=== PATIENT | female | born 1940 | race Caucasian/White ===

== ENCOUNTER → 2017-03-22 | Outpatient (CLI) | payer OTHER ==
[~2017-03-22] MED LIST: ACTOS PO; ALPRAZOLAM PO; ASPIRIN PO; ATACAND PO; CATAPRES0.1 MG PO; CENTRUM SILVER PO; CLONIDINE PO; CLONIDINE TOP; CLOPIDOGREL75 MG PO; COREG PO; CRESTOR5 MG PO; FISH OIL 1,0001 CAP PO; GLUCOSOMINE PO; IRON TABLETS1 TAB PO; LASIX PO; LIPITOR PO; LISINOPRIL PO; LOSARTAN POTASS50 MG PO; LOVAZA1 G PO; NEXIUM PO; NIACIN500 M1 PO; NITROGYLCERIN SUBLINGUAL; NORVASC PO; PRAVASTATIN SOD10 MG PO; SENSIPAR30 M1 PO; SYNTHROID PO; TRICOR PO; VELPHORO500 MG PO; VITAMIN C500 M1 PO; VITAMIN D50000 UNIT PO; ZYLOPRIM100 MG PO
--- NOTE | ~2017-03-22 | CT98 ---
[facility] A Service of [facility] & [facility] RADIOLOGY TEXT RESULTS PATIENT: DAVID HOBBS LOCATION: [facility] : 44 UNIT #: [id number] AGE: [address]: Miller Guidry MD SEX: F ORDER DR: [id number] [facility] [address] [place], [place] [address] [id number] O MR#: [id number] Acc #: [id number] NAME: DAVID HOBBS. : 1940 SEX: F STUDY DATE/TIME: 03/22/2017 14:19 [facility]IT: [facility] ROOM: STUDY DESCRIPTION: CT Lumbar Spine Wo Cont Attending Physician: Miller Guidry Jr., M.D. Referring Physician: Miller Guidry Jr., M.D. Ordering Physician: Miller Guidry Jr., M.D. Primary Care Physician: Miller Guidry Jr., M.D. MEDICAL IMAGING REPORT This report is preliminary unless electronic signature is present EXAM CT of the lumbar spine without contrast dated 03/22/2017. COMPARISON Plain films lumbar spine dated 03/25/2013. 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 TECHNIQUE CT of the lumbar spine was obtained without contrast in the axial plane followed by sagittal and coronal reformats. This CT exam was performed with one or more of the following radiation dose reduction techniques: automatic exposure control, adjustment of mA and/or kV according to patient size, and iterative reconstruction. FINDINGS There is superior endplate compression deformity of L1 with no obvious acute changes. It is age-indeterminate and probably iiaufylu-zj-rdagypp. There is probably developing Schmorl node along the anterior aspect of the superior endplate. Multilevel endplate osteophytes are noted in the anterior and posterior aspect. Sclerotic bony changes are noted at L2-L3. Bilateral renal lesions are noted in retroperitoneum, incompletely included and characterized on the current study. They were also noted in the prior CT abdomen from 07/04/2010 T12-L1: Disc osteophyte complex with asymmetrical prominence in the central to right subarticular region. There is mild mass effect on the adjacent thecal sac. Minimal bilateral facet changes are noted without any significant neural foraminal narrowing. [facility]. [facility] A Service of [facility] RADIOLOGY TEXT RESULTS PATIENT: DAVID HOBBS [facility]ATION: [facility] : 44 UNIT #: [id number] AGE: [address]: Miller Guidry MD SEX: F ORDER DR: L1-L2: Disc osteophyte complex which is asymmetrically prominent in the central to right extra-foraminal region. There is mass effect on the adjacent thecal sac with moderate canal stenosis. Mild right neural foraminal narrowing is seen with mild right lateral recess stenosis. L2-L3: Disc osteophyte complex which is asymmetrically prominent in bilateral foraminal to extra-foraminal regions, particularly in the left. Minimal bilateral facet changes are noted. There is dagg-ze-ttbxawtv bilateral neural foraminal narrowing and borderline-sized canal. L3-L4: Disc osteophyte complex is asymmetrically prominent in bilateral foraminal to extra-foraminal regions, particularly on the left. There are some moderate bilateral facet hypertrophic changes, kcpy-tu-zgvszpcf canal stenosis, mild bilateral lateral recess stenosis and guoikiog-kp-lfdlid bilateral neural foraminal narrowing. L4-L5: Moderate disc osteophyte complex with umqh-cs-sxcqsizc left facet hypertrophic changes. Ngsa-mf-fhegvvnn canal stenosis is seen with mild bilateral lateral recess stenosis and mild bilateral neural foraminal narrowing. L5-S1: Disc osteophyte complex with moderate left, severe right facet hypertrophic changes. Qqcd-bf-vyoxhdir bilateral neural foraminal narrowing is seen with borderline-sized canal. Mild bilateral lateral recess stenosis. IMPRESSION 1. There is age-indeterminate superior endplate compression deformity of L1 without any obvious fracture lines. There is a developing Schmorl node. No retropulsion of fragments are noted into the canal causing canal stenosis. If there is suspicion for superimposed acute compression component, MRI can be considered for evaluation of bone edema. No paravertebral hematoma or significant is significant fat stranding is seen. 2. Multilevel degenerative changes are noted involving the disc and facet joints, as described above. 3. Bilateral renal lesions are noted, incompletely included and characterized on the current study. They were also noted in the prior CT abdomen from 07/04/2010 and are probably cysts. They could not be adequately compared. Dictated by... Binh Thompson M.D. THIS IS AN ELECTRONICALLY VERIFIED REPORT Binh Thompson M.D. at 03/25/2017 9:14 PM [facility] A Service of [facility] & [facility] RADIOLOGY TEXT RESULTS PATIENT: DAVID HOBBS [facility]: [facility] : 44 UNIT #: [id number] AGE: [address]: Miller Guidry MD SEX: F ORDER DR: BISHOP/brina TD: 03/23/2017 17:35 JOB #: [id number] MEDICAL IMAGING REPORT Page 1 of 1 COPY
== END | disposition home or self-care (01) ==
LOC: CCAT 13:12
DX: G57.90 Unspecified mononeuropathy of unspecified lower limb (principal); M43.8X6 Other specified deforming dorsopathies, lumbar region; M51.36 Other intervertebral disc degeneration, lumbar region; M46.96 Unspecified inflammatory spondylopathy, lumbar region
CPT/HCPCS: 72131

== ENCOUNTER → 2017-04-12 | Day surgery (SDC) | payer OTHER ==
--- NOTE | ~2017-04-12 | EKG ---
PATIENT: DAVID HOBBS UNIT #: [id number] Ventricular Rate: 64 BPM Atrial Rate: 64 BPM P-R Interval: 166 ms QRS Duration: 92 ms Q-T Interval: 444 ms QTC Calculation(Bezet): 458 ms P Pequea: 46 degrees Calculated R Pequea: -12 degrees Calculated T Pequea: 76 degrees Diagnosis Line: Normal sinus rhythm Diagnosis Line: Normal ECG Diagnosis Line: No previous ECGs available Diagnosis Line: Confirmed by DIAN BENAVIDEZ MD ([id number]) on Diagnosis Line: 04/13/2017 11:34:59 AM INTERPRETING MD: REEMA GALVAN
--- NOTE | ~2017-04-12 | OR ---
Unit #: [id number] #: [id number] Patient: DAVID HOBBS [id number] [address] [place], [place] [address] [id number] O MR#: [id number] NAME: DAVID HOBBS. ROOM: Date of Procedure: 04/12/2017 Admission Date: 04/12/2017 Surgeon: Tien Ziegler M.D. : 1940 Attending Physician: Tien Ziegler M.D. Primary Care Physician: Miller Guidry Jr., M.D. OPERATIVE REPORT PREOPERATIVE DIAGNOSIS Enlarging subcutaneous mass, right axilla. POSTOPERATIVE DIAGNOSIS Enlarging subcutaneous mass, right axilla. PROCEDURE PERFORMED Excision of enlarging subcutaneous mass, right axilla, 2 x 2 cm with layered closure. ANESTHESIA Versed 4 mg, Demerol 50 mg each IV push in divided dosages with continuous cardiac and O2 saturation monitoring. 1% Xylocaine plain local anesthesia. FINDINGS The lesion was consistent with a sebaceous cyst. SPECIMENS Sent to Pathology. COMPLICATIONS None apparent. CONDITION The patient tolerated the procedure well. INDICATIONS FOR PROCEDURE The patient is a 77-year-old white female, who has enlarging subcutaneous mass of the right axilla. It has intermittently become inflamed. She presents at this time for excision for pathologic diagnosis and treatment. DESCRIPTION OF PROCEDURE After obtaining informed consent as well as receiving preoperative antibiotics, the patient was brought to the operating room and after adequate IV sedation, had her right axilla prepped and draped in a sterile fashion. The area was anesthetized with 1% Xylocaine plain local anesthesia. An elliptical incision was made around the area with a knife and dissection was taken down to the subcutaneous tissues with a tenotomy scissors. The lesion was consistent with a sebaceous cyst and was excised circumferentially with sharp dissection. Hemostasis was obtained with the Bovie. The deep tissues were reapproximated with interrupted 3-0 Vicryl suture. The skin was closed with interrupted 3-0 nylon vertical mattress Unit #: [id number] #: [id number] Patient: DAVID HOBBS sutures. A dry dressing was applied followed by a Tegaderm dressing. Needle counts, sponge counts, and instrument counts were all correct as reported by the scrub nurse x2. The patient went from the operating room to the recovery room in stable condition. Dictated by... Carla Cunha/fer TD: 04/12/2017 16:39 JOB #: [id number] CC: Miller Guidry Jr., M.D. [facility] OPERATIVE REPORT Page 1 of 1 X Tien Ziegler MD X PROCEDURE OPERATIVE NOTE
[2017-04-12 11:41] LABS: BUN/CREATININE RATIO 4.23; CALCIUM SERUM 9.3 mg/dL (8.4-10.2); CREATININE SERUM 5.2 mg/dL (0.6-1.4); GLOM FILT RATE Estimated 7.5 mL/min (>60); POTASSIUM 4.8 mmol/L (3.5-5.1)
== END | disposition home or self-care (01) ==
LOC: CSUR 10:06
PROVIDERS: Surgery
DX: L72.0 Epidermal cyst (principal); I25.10 Atherosclerotic heart disease of native coronary artery without angina pectoris; I13.2 Hypertensive heart and chronic kidney disease with heart failure and with stage 5 chronic kidney disease, or end stage renal disease; E11.22 Type 2 diabetes mellitus with diabetic chronic kidney disease; I50.9 Heart failure, unspecified; N18.6 End stage renal disease; I25.2 Old myocardial infarction; E11.42 Type 2 diabetes mellitus with diabetic polyneuropathy; E78.5 Hyperlipidemia, unspecified; M17.12 Unilateral primary osteoarthritis, left knee; E03.9 Hypothyroidism, unspecified; K21.9 Gastro-esophageal reflux disease without esophagitis; Z87.891 Personal history of nicotine dependence; Z87.01 Personal history of pneumonia (recurrent); Z87.440 Personal history of urinary (tract) infections; Z79.82 Long term (current) use of aspirin; Z79.02 Long term (current) use of antithrombotics/antiplatelets; Z79.899 Other long term (current) drug therapy; Z79.84 Long term (current) use of oral hypoglycemic drugs; Z95.5 Presence of coronary angioplasty implant and graft; Z99.2 Dependence on renal dialysis; Z95.1 Presence of aortocoronary bypass graft; Z98.890 Other specified postprocedural states
CPT/HCPCS: 80048; 88304; 93005; J2175; J2250